=== PATIENT | male | born 1985 | race Asian ===

== ENCOUNTER 2019-06-03 20:51 | Emergency (ER) | payer OTHER ==
--- NOTE | 2019-06-03 21:05 | PDOC ---
Rapid Medical Evaluation Medical Evaluation: 06/03/19 20:59 HPI: COVID-19 CDC guideline data points: The patient is a 34 y.o M presents with exposure to confirmed COVID-19 with associated symptoms of fever, dry cough, loss of sense of taste, losss of smell, sore thorat x 5 days complicated by this/these comorbidities: none. 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 spoke with nursing admit inst to come in for testing. Took tylenol at 4 pm ROS: NEGATIVE: difficulty breathing, shortness of breath, chest pain, lightheadedness, dizziness, nausea, vomiting and diarrhea. Other 12 point ROS reviewed and negative. Exam: General: NAD, Well-Appearing, Awake, Alert Oriented x3. Vital signs stable. ENT: No rhinorrhea or nasal congestion. Neck: FROM, no midline tenderness. Lungs: Clear to auscultation bilaterally without wheezes, rhonchi or rales. Normal excursion. Patient is able to speak in full sentences. Heart: HR: Regular rhythm, S1-S2 present, no murmurs rubs or gallops. Abdomen: Non-distended. MSK/Extremities: No decrease ROM, No obvious deformities. No obvious cyanosis noted. Neuro: Normal Gait, Cranial Nerves II through XII Grossly Intact. Skin: No obvious rashes, bruising. Color Normal Appearing. Assessment/Plan: [Cough/fever] Patient has a history of this/these comorbidities:none, (+) COVID exposure. Patient does meet testing criteria at this time. Treatment: COVID testing d/c home 06/03/19 21:05 Discharge Disposition - Diagnosis Cough, Viral illness - Discharge Dispostion Condition at time of disposition: Stable - Referrals - Patient Instructions Additional Instructions: You have been tested for COVID. You must remain at home in isolation untill symptoms resolved. call [facility] - Post Discharge Activity
[2019-06-03 21:09] VITALS: BP 128/84; PULSE 99; TEMP 98
== END 2019-06-03 21:46 ==
LOC: JER 20:51
DX: B34.9 Viral infection, unspecified (principal); Z20.828 Contact with and (suspected) exposure to other viral communicable diseases
CPT/HCPCS: 99282-25; U0002

== ENCOUNTER 2021-06-30 23:40 | Emergency (ER) | payer OTHER, BC ==
[2021-06-30] MEDS ORDERED: DIPHTH,PERTUSS(ACELL),TET 0.5 ML DISP.SYRIN IM ONE (23:47)
[2021-06-30 23:48] VITALS: BP 124/78; PULSE 89; TEMP 98.6; BMI 21.2
[2021-07-01 00:14] LABS: BASO % 1.1 % (0-2.0); EOS % 2.7 % (0-4.5); HEMATOCRIT 47.3 % (35.4-49); HEMOGLOBIN 15.5 GM/dL (11.7-16.9); LYMPH % 42.8 % (8-40); MCH 28.9 pg (25.7-33.7); MCHC 32.7 g/dl (32.0-35.9); MEAN CELL VOLUME 88.6 fl (80-96); MEAN PLT VOLUME 9.1 fl (7.5-11.1); MONO % 9.8 % (3.8-10.2); NEUT % 43.6 % (42.8-82.8); PLATELET COUNT 218 10^3/uL (134-434); RBC 5.34 M/mm3 (4.00-5.60); RDW 13.8 % (11.9-15.9); WHITE BLOOD COUNT 6.9 K/mm3 (4.0-10.0)
[2021-07-01 00:35] LABS: ALBUMIN 4.3 g/dl (3.4-5.0); BLOOD UREA NITROGEN 23.5 mg/dL (7-18); CALCIUM 9.1 mg/dL (8.5-10.1)
[2021-07-01 00:39] LABS: CREATININE 0.9 mg/dL (0.55-1.3)
[2021-07-01 00:40] LABS: BILIRUBIN,TOTAL 0.3 mg/dL (0.2-1); TOT PROT 7.8 g/dl (6.4-8.2)
[2021-07-01 01:00] LABS: SYPHILIS W/ RPR CONF NON-REACTIVE (NONREACTIVE)
[2021-07-01 01:29] LABS: HIV INTERPRETATION NEGATIVE (NEGATIVE)
== END 2021-07-01 00:07 | disposition home or self-care (01) ==
LOC: JER 23:40
PROC: 3E0234Z Introduction of Serum, Toxoid and Vaccine into Muscle, Percutaneous Approach (ICD-10-PCS; principal; 2021-06-30)
DX: S61.235A Puncture wound without foreign body of left ring finger without damage to nail, initial encounter (principal); W46.1XXA Contact with contaminated hypodermic needle, initial encounter
CPT/HCPCS: 36415; 80053; 85025; 86704; 86780; 86803; 86850; 86900; 86901; 87340; 87389; 87517; 90715; 99283-25

== ENCOUNTER 2021-09-30 18:01 | Emergency (ER) | payer BC, OTHER ==
[2021-09-30 18:08] VITALS: BP 122/86; PULSE 61; RESP 18; TEMP 97.5; BMI 24.9
[2021-09-30] MEDS ORDERED: ONDANSETRON *ODT* 4 MG TABLET SL ONE (18:12)
[2021-09-30] MEDS ORDERED: IBUPROFEN 600 MG TABLET (FP) PO ONE (18:12)
[2021-09-30] MEDS ORDERED: SODIUM CHLORIDE 0.9% 500 ML INFUS.BAG IV ONE ×2 (18:12→19:59)
[2021-09-30 19:00] LABS: BASO % 1.2 % (0-2.0); EOS % 2.7 % (0-4.5); HEMATOCRIT 46.7 % (35.4-49); HEMOGLOBIN 15.2 GM/dL (11.7-16.9); LYMPH % 37.1 % (8-40); MCH 29.2 pg (25.7-33.7); MCHC 32.6 g/dl (32.0-35.9); MEAN CELL VOLUME 89.5 fl (80-96); MEAN PLT VOLUME 9.5 fl (7.5-11.1); MONO % 11.5 % (3.8-10.2); NEUT % 47.5 % (42.8-82.8); PLATELET COUNT 211 10^3/uL (134-434); RBC 5.21 M/mm3 (4.00-5.60); RDW 13.3 % (11.9-15.9); WHITE BLOOD COUNT 5.9 K/mm3 (4.0-10.0)
[2021-09-30 19:17] LABS: CALCIUM 8.8 mg/dL (8.5-10.1)
[2021-09-30 19:18] LABS: ALBUMIN 4.1 g/dl (3.4-5.0); BLOOD UREA NITROGEN 18.1 mg/dL (7-18)
[2021-09-30 19:21] LABS: CREATININE 0.8 mg/dL (0.55-1.3)
[2021-09-30 19:23] LABS: BILIRUBIN,TOTAL 0.2 mg/dL (0.2-1); TOT PROT 7.5 g/dl (6.4-8.2)
== END 2021-09-30 20:51 | disposition home or self-care (01) ==
LOC: JERFT 18:01
DX: R51.9 Headache, unspecified (principal)
CPT/HCPCS: 0241U-QW; 36415; 80053; 85025; 99284-25; Q0162